=== PATIENT | female | born 1955 | race Caucasian/White ===

== ENCOUNTER 2023-12-22 04:14 | Day surgery (SDC) | payer OTHER ==
[2023-12-20 09:35] VITALS: BMI 23.0
[2023-12-22] MEDS: TRYPAN BLUE 0.5 ML DISP.SYRIN IO ONE
[2023-12-22] MEDS ORDERED: PHENYLEPHRINE 2.5% OPTHALMIC DROP 2ML BOTTLE ONE (07:16)
[2023-12-22] MEDS ORDERED: OFLOXACIN 0.3% OPHTHALMIC SOLUTION 5 ML BOTTLE ONE (07:16)
[2023-12-22] MEDS ORDERED: TROPICAMIDE 1% OPHTH SOLN 15 ML BOTTLE ONE (07:16)
[2023-12-22] MEDS ORDERED: KETOROLAC TROMETHAMINE 0.5% EYE DROP 1 DROP DROPS ONE (07:16)
[2023-12-22] MEDS ORDERED: CYCLOPENTOLATE HCL 1% OPHTH SOLN 2 ML BOTTLE ONE (07:16)
[2023-12-22 07:27] VITALS: RESP 20
[2023-12-22] MEDS ORDERED: TRYPAN BLUE 0.5 ML DISP.SYRIN ONE (07:31)
[2023-12-22] MEDS ORDERED: LIDOCAINE HCL/PF 1% SDV 5ML VIAL ONE (07:31)
[2023-12-22] MEDS ORDERED: EPINEPHrine/PF 1 MG/1 ML (1:1,000) AMPULE ONE (07:31)
[2023-12-22] MEDS ORDERED: POVIDONE-IODINE 5% OPHTHALMIC PREP 30 ML SOLUTION ONE (07:31)
[2023-12-22] MEDS: CYCLOPENTOLATE HCL 1% OPHTH SOLN 2 ML BOTTLE OP SCH (07:59)
[2023-12-22] MEDS: KETOROLAC TROMETHAMINE 0.5% EYE DROP 1 DROP DROPS OP SCH (08:00)
[2023-12-22] MEDS: TROPICAMIDE 1% OPHTH SOLN 15 ML BOTTLE OP SCH (08:00)
[2023-12-22] MEDS: PHENYLEPHRINE 2.5% OPHTH SOLN 15 ML BOTTLE OP SCH (08:00)
[2023-12-22] MEDS: OFLOXACIN 0.3% OPHTHALMIC SOLUTION 5 ML BOTTLE OP SCH (08:01)
[2023-12-22] MEDS ORDERED: PROPOFOL 20 ML ONE (09:03)
[2023-12-22] MEDS ORDERED: MIDAZOLAM HCL 2 MG/2 ML SINGLE DOSE VIAL ONE (09:09)
[2023-12-22] MEDS: TETRACAINE 0.5% OPHTH SOLN 2 ML BOTTLE OS ONE ×2 (09:10)
[2023-12-22] MEDS: POVIDONE-IODINE 5% OPHTHALMIC PREP 30 ML SOLUTION OS ONE ×2 (09:11)
[2023-12-22] MEDS: LIDOCAINE HCL 1% PRESERVATIVE FREE - 30ML VIAL IO ONE ×3 (09:18→09:19)
[2023-12-22] MEDS: CHONDROITIN SU A/HYALUR SOD 1 KIT IO ONE ×2 (09:19)
[2023-12-22] MEDS: BSS (NA/CA/MG/K) BALANCED SALT SOLUTION OPHTH SOLN 15 ML BOTTLE OS ONE ×2 (09:20)
[2023-12-22] MEDS: EPINEPHrine/PF 1 MG/1 ML (1:1,000) AMPULE IO ONE ×2 (09:21)
[2023-12-22] MEDS ORDERED: ACETAMINOPHEN 325 MG TABLET (FP) ONE (09:55)
[2023-12-22] MEDS: ACETAMINOPHEN 325 MG TABLET (FP) PO PRN (09:56)
[2023-12-22 11:12] VITALS: BP 123/63; PULSE 80; TEMP 98.4
== END 2023-12-22 10:55 | disposition home or self-care (01) ==
LOC: JASU-SURG 04:14
PROVIDERS: ATTEND Ophthalmology
PROC: 08RK3JZ Replacement of Left Lens with Synthetic Substitute, Percutaneous Approach (ICD-10-PCS; principal; 2023-12-22 09:00)
DX: H26.8 Other specified cataract (principal)
CPT/HCPCS: 66984; V2632; 36415; 82010; 82962